=== PATIENT | male | born 1955 | race Caucasian/White ===

== ENCOUNTER 2017-07-30 23:58 | Inpatient (IN) | payer MEDICAID, OTHER ==
--- NOTE | 2017-07-31 00:09 | EDPHY ---
H & P Stated Complaint: lower abd pain xfew hours Time Seen by Provider: 07/31/17 00:05 HPI/ROS: HPI CHIEF COMPLAINT: Abdominal pain HISTORY OF PRESENT ILLNESS: This patient is a very pleasant 61-year-old male, he has stage IV colorectal cancer to his liver, he presents emergency room with abdominal pain since 0330 in the afternoon today. He has had nausea but no vomiting. No diarrhea. He states he was recently hospitalized at [facility] for blood transfusion due to anemia. He is currently undergoing treatment for his cancer and getting chemotherapy. He has a port in his chest. Decided come the emergency room as he has been taking oxycodone for his abdominal pain in his abdominal pain has gotten worse. He complains of rather diffuse pain but focally tender in the lower abdomen. He has nausea but no vomiting. Denies fever. Complains of 8/10 lower abdominal pain. He states this started after him taking a probiotic. Patient was recently hospitalized [facility] over the weekend for neutropenic fever and anemia, did receive 2 units of PRBCs. Past Medical History: Colorectal and liver cancer stage IV, currently undergoing treatment, neutropenic fever, anemia, diarrhea Past Surgical History: Chest port. Social History: Denies drugs alcohol tobacco. Family History: Noncontributory Dr. Landaverde is his Oncologist. ROS REVIEW OF SYSTEMS: A comprehensive 10 point review of systems is otherwise negative aside from elements mentioned in the history of present illness. Exam Constitutional frail, thin appearing, september triage nursing summary reviewed, vital signs reviewed, awake/alert. Eyes normal conjunctivae and sclera, EOMI, PERRLA. HENT normal inspection, atraumatic, moist mucus membranes, no epistaxis, neck supple/ no meningismus, no raccoon eyes. Respiratory clear to auscultation bilaterally, normal breath sounds, no respiratory distress, no wheezing. Cardiovascular rate normal, regular rhythm, no murmur, no edema, distal pulses normal. Gastrointestinal distended abdomen, significant tenderness to the lower abdomen. No peritoneal signs. Genitourinary no CVA tenderness. Musculoskeletal no midline vertebral tenderness, full range of motion, no calf swelling, no tenderness of extremities, no meningismus, good pulses, neurovascularly intact. Skin pink, warm, & dry, no rash, skin atraumatic. Neurologic awake, alert and oriented x 3, AAOx3, moves all 4 extremities equally, motor intact, sensory intact, CN II-XII intact, normal cerebellar, normal vision, normal speech. Psychiatric normal mood/affect. Heme/Lymph/Immune no lymphadenopathy. Differential diagnosis includes but is not limited to and in no particular order : Ischemic bowel, Bowel obstruction, appendicitis, gallbladder disease, diverticulitis, colitis, enteritis, perforated viscus, gastritis, GERD, esophagitis, urinary tract infection, pyelonephritis, kidney stones Medical Decision Making: Plan for this patient IV establishment IV fluid bolus , IV morphine 6 mg for pain control, IV Zofran nausea, CT scan abdomen pelvis with IV contrast rule out significant acute intra-abdominal pathology, KUB, check lactic acid, check basic blood work and re-evaluate. Re-evaluation: 0206: CT scan abdomen pelvis with IV contrast called to me by Dr. Garber. This shows intra-abdominal free air specifically above the liver edge. Additionally large colorectal tumor with some air pockets in it. Question if this is the air perforation. Metastatic disease noted to the liver. Bilateral hydroureter. 0207: Given the free air I did consult surgery Dr. Phillips she will come and see and evaluate the patient. I have ordered the patient IV Invanz. I did re-evaluate him he is resting comfortably at this time after IV pain medicine. Vital signs stable this time. Heart rate 92. Blood pressure 120/73. 93% on room air. Additionally I will place a consult to his oncologist. Spoke with Dr. Landaverde: Oncology. Reviewed the Case. 0258AM: Patient seen evaluated by Dr. Phillips. Long discussion with the patient at the bedside. At this time the patient does not want to go to the operating room wants to be observed with pain control and IV antibiotics. Will admit to [address] [place] [address], Oncology[address] Dr. Phillips to admit. Source: Patient - Personal History Current Tetanus/Diphtheria Vaccine: Unsure - Medical/Surgical History Hx Asthma: No Hx Chronic Respiratory Disease: No Hx Diabetes: No Hx Cardiac Disease: No Hx Renal Disease: No Hx Cirrhosis: No Hx Alcoholism: No Hx HIV/AIDS: No Hx Splenectomy or Spleen Trauma: No Other PMH: stage 4 liver and colon CA - Social History Smoking Status: Never smoked Constitutional: Initial Vital Signs Temperature (C) 35.8 C L 07/31/17 00:00 Heart Rate 85 07/31/17 00:00 Respiratory Rate 18 07/18 00:00 Blood Pressure 107/76 07/31/17 00:00 O2 Sat (%) 99 07/31/17 00:00 O2 Delivery Mode Room Air Allergies/Adverse Reactions: No Known Allergies Allergy (Verified 07/31/17 00:03) Home Medications: Medication Instructions Recorded Acetaminophen [Tylenol ES 500 mg 500 - 1,000 mg PO Q6 PRN 07/31/17 (*)] Gabapentin [Neurontin 300 MG (*)] 300 mg PO TID 07/31/17 LORazepam [Ativan (*)] 1 mg PO Q6HRS PRN 07/31/17 Multivitamins [Multivitamin (*)] 1 each PO DAILY 07/31/17 Omeprazole 40 mg PO DAILY 07/31/17 Prochlorperazine Maleate 10 mg PO Q6HRS PRN 07/31/17 [Compazine 10mg (*)] Sulfamethox/Tmp 800/160 mg 1 tab PO BID 07/31/17 [Bactrim Ds] oxyCODONE IR [Oxycodone Ir (*)] 5 mg PO Q4-6PRN PRN 07/31/17 Medical Decision Making - Diagnostics Imaging Results: Imaging Impressions Abdomen CT 07/31/17 00:16 Impression: 1. Pneumoperitoneum suspicious for perforated abdominal viscus. 2. Extensive hepatic metastatic disease. 3. Large irregular enhancing mass within the deep pelvis, with central air bubbles suggesting communication with bowel lumen. 4. Moderate bilateral hydronephrosis. 5. Abdominal and pelvic ascites, mild. The study was performed as an emergency on-call case and discussed by telephone with Dr. Vijay Obrien at 2:00 a.m. The final interpretation is concordant with the original communication. - Data Points Laboratory Results: Laboratory Results 07/31/17 00:31 07/31/17 00:31 Medications Given: Meropenem 1 gm/ Sterile Water 20 mls @ 240 mls/hr IV Q8HRS TATE PRN Reason: Protocol Stop: 08/30/17 08:59 Last Admin: 07/31/17 21:42 Dose: 20 mls Morphine Sulfate (Morphine Shellfish Checker) 0 mg IV PRN PRN; Protocol PRN Reason: Pain, Severe Unable to Take PO Stop: 08/10/17 02:57 Last Admin: 07/31/17 18:15 Dose: 30 mg Discontinued Medications Ertapenem (Invanz) 1 gm IV EDNOW ONE PRN Reason: Protocol Stop: 07/31/17 01:57 Last Admin: 07/31/17 02:07 Dose: 1 gm Hydromorphone HCl (Dilaudid) 1 mg IVP EDNOW ONE Stop: 07/31/17 00:17 Last Admin: 07/31/17 00:44 Dose: 1 mg Hydromorphone HCl (Dilaudid) 1 mg IVP EDNOW ONE Stop: 07/31/17 01:17 Last Admin: 07/31/17 01:18 Dose: 1 mg Hydromorphone HCl (Dilaudid) 1 mg IVP EDNOW ONE Stop: 07/31/17 03:15 Last Admin: 07/31/17 03:21 Dose: 1 mg Sodium Chloride (Ns) 1,000 mls @ 0 mls/hr IV EDNOW ONE; Wide Open PRN Reason: Protocol Stop: 07/31/17 00:17 Last Admin: 07/31/17 02:06 Dose: 1,000 mls Sodium Chloride (Ns) 1,000 mls @ 0 mls/hr IV ONCE ONE PRN Reason: Wide Open Stop: 07/31/17 01:57 Last Admin: 07/31/17 02:08 Dose: Not Given Morphine Sulfate (Morphine) 6 mg IVP EDNOW ONE Stop: 07/31/17 00:36 Last Admin: 07/31/17 00:46 Dose: Not Given Ondansetron HCl (Zofran) 4 mg IVP EDNOW ONE Stop: 07/31/17 00:17 Last Admin: 07/31/17 00:43 Dose: 4 mg Departure - Departure Disposition: [facility] Inpatient Acute Clinical Impression: Intra-abdominal free air of unknown etiology, Colorectal cancer Condition: Critical
[2017-07-31] MEDS ORDERED: HYDROmorphONE/DILAUDID 1 MG/ML INJ IVP ONE (00:16)
[2017-07-31] MEDS ORDERED: ONDANSETRON 4 MG/2 ML VIAL IVP ONE (00:16)
[2017-07-31] MEDS ORDERED: HYDROmorphONE/DILAUDID 2 MG/ML INJ ONE (00:42)
[2017-07-31] MEDS: NS 1,000 ML IV ONE ×2 (00:45→02:06)
[2017-07-31 00:52] LABS: PLATELET COUNT 259 10^3/uL (150-400)
[2017-07-31 00:57] LABS: INR 1.16 (0.83-1.16)
[2017-07-31] MEDS ORDERED: IOPAMIDOL (ISOVUE-300) 100 ML BTL ONE (01:06)
[2017-07-31] MEDS ORDERED: HYDROmorphONE/DILAUDID 2 MG/ML INJ IVP ONE ×2 (01:16→03:14)
[2017-07-31] MEDS ORDERED: NS 1,000 ML IV ONE (01:56)
[2017-07-31] MEDS ORDERED: ERTAPENEM 1 GM VIAL IV ONE (01:56)
[2017-07-31] MEDS ORDERED: ONDANSETRON 4 MG/2 ML VIAL IVP PRN (02:58)
[2017-07-31] MEDS ORDERED: NALOXONE HCL 0.4 MG/ML INJ IVP PRN (02:58)
[2017-07-31] MEDS ORDERED: PROMETHAZINE HCL 25 MG/ML INJ IVP PRN (02:58)
[2017-07-31] MEDS ORDERED: LORazepam 2 MG/ML INJ IVP PRN (02:58)
--- NOTE | 2017-07-31 03:56 | GHP ---
[f rep st] HISTORY AND PHYSICAL DATE OF ADMISSION: 07/31/2017 CHIEF COMPLAINT: Lower abdominal pain. HISTORY OF PRESENT ILLNESS: The patient is a 61-year-old man with known colorectal cancer with metastatic disease to his liver and known colovesical fistula. He was recently discharged from [facility] today with neutropenic fever. He received a blood transfusion. His initial chemotherapy consisted of FOLFOX and Avastin, but he has not received Avastin in a very long time due to the fistula. He has then been transitioned to FOLFIRI. He took probiotics this afternoon, and then had abrupt onset of abdominal pain that did not resolve. PAST MEDICAL HISTORY: Stage IV colorectal cancer. PAST SURGICAL HISTORY: [employer]. SOCIAL HISTORY: Denies tobacco, alcohol, or drug use. 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 FAMILY HISTORY: Noncontributory to free air. REVIEW OF SYSTEMS: Difficult to obtain because the patient is very ill. He does complain of abdominal pain. He discusses that he did not have that pain earlier. PHYSICAL EXAMINATION: VITAL SIGNS: 35.8, 92, 120/72, 16, 93%. GENERAL: Pleasant, lying in bed. He is well nourished. HEENT: Normocephalic. No gross hearing deficits. Mucous membranes dry. Eyes closed throughout most of the exam, but no obvious scleral icterus. LUNGS: Clear to auscultation bilaterally. Breathing shallow. CARDIAC: Regular rate. No peripheral edema. ABDOMEN: His abdomen is firm. There are no surgical incisions. Bowel sounds are hypoactive. He is tender to percussion, the right side is worse than the left. SKIN: Warm and dry. PSYCH: Flat affect. NEURO: Grossly intact. RESULTS REVIEWED: I personally reviewed the results of his CT scan. See free air by the liver. There are also some small dots in the pelvis. He has a large mass in the pelvis that certainly shows colon invading into bladder. His white blood cell count is 13.17, hemoglobin and hematocrit 10.5 and 31, and platelets 259. His INR is 1.6. His lactate is 1.2. His chemistry panel is essentially within normal limits. IMPRESSION AND PLAN: The patient is a 61-year-old man with stage IV colorectal cancer, who now has free air. I do not think that he can be transferred to another hospital at this time just due to his pain. We discussed going to the operating room, exploring, and possibly bring up a diverting ostomy. I am concerned that the perforation is within the pelvis, and this would be a formidable surgery as it would also involve removing the bladder in addition to having liver mets. We discussed if we went to the operating room and no obvious area of proximal free air was found I would likely wash him out, possibly give him an ostomy, and possibly leave his abdomen open. We also discussed the alternatives of doing nothing, and that could mean becoming very septic as there is obvious bacteria leaking out. We would cover him with broad- spectrum antibiotics as he could have a small chance of improving. He understands that the perforation could lead to his demise with or without surgery. He understands that with surgery we could attempt to find the perforation and correct the situation. At this time, he does not want to proceed with surgery. We will discuss again in the morning. He would like to be a DNR. /[id number]/MODL MTDD
[2017-07-31] MEDS: morphINE PCA 30 MG/30 ML PCA IV PRN ×2 (04:10→18:15)
[2017-07-31 07:54] LABS: PLATELET COUNT 254 10^3/uL (150-400)
[2017-07-31] MEDS: MEROPENEM 1 GM in STERILE WATER INJ 20 ML IV SCH ×3 (08:26→21:42)
[2017-07-31] MEDS ORDERED: MEROPENEM 1 GM in STERILE WATER INJ 20 ML IV SCH (09:00)
--- NOTE | 2017-07-31 11:30 | ASMTCMCOM ---
CM Note CM Note Notes: Pt admitted w/abdominal pain, has known colorectal cancer per H&P. He was dc'd from [facility] yesterday and then admitted here. Pt has been seen by Dr Phillips, plan not clear yet. Pt's Mother at bedside. CM will follow. Date Signed: 07/31/2017 11:29 AM Electronically Signed By:Rachel Case RN
--- NOTE | 2017-07-31 14:03 | GHP ---
[f rep st] HISTORY AND PHYSICAL DATE OF ADMISSION: 07/31/2017 REASON FOR CONSULTATION: 1. Metastatic colorectal carcinoma. 2. Colonic perforation. HISTORY OF PRESENT ILLNESS: Carmine is a 61-year-old gentleman who was diagnosed with a metastatic col orectal cancer in July of 2016. He presented with a large pelvic mass and evidence of pelvic wall i nvasion and a colovesicular fistula. Further staging studies revealed diffuse liver metastasis. His primary pelvic mass was unresectable at presentation. He was treated initially with FOLFOX chemotherapy which was completed in January of 2017. He had a good initial partial response. He was transitioned to maintenance capecitabine and was given 1 IR d irected Y-90 TheraSphere treatment in late April 2017. The patient recently developed progressive disease in the pelvis and was transitioned to FOLFIRI. He has had 2 cycles of treatment. His most recent treatment was given on July 17, 2017. He was recently admitted to [facility] with neutropenic fever and pancytopenia secondar y to chemotherapy. His pancytopenia improved. There was no clear source of infection. He was given packed red cell transfusion. He was discharged from the hospital yesterday. Carmine, unfortunately, developed acute onset abdominal pain several hours after leaving [facility] and presented by ambulance to [facility] early this morning. A CT of the abdomen done in the ER revealed pneumoperitoneum suspicious for a perforated abdominal viscus. He zelaya s a persistent large irregularly enhancing mass within the deep pelvis with central air bubbles sugge sting the potential source of the perforation. Extensive hepatic metastatic disease was noted as was abdominal ascites. The patient was evaluated by Dr. Phillips of General Surgery. The option of a palliative diverting colo stomy was discussed with the patient. When seen today, the patient is accompanied by his mother. He has given things a great deal of thoug ht and states that he does not want to pursue surgery and that he does not want any further therapy f or his metastatic colorectal cancer. He would like to be allowed to naturally. His mother is mariee pportive of his decision. His pain is better on a morphine SENIOR GL ACCOUNTANT. PAST MEDICAL HISTORY: Recent diagnosis of metastatic colorectal cancer as outlined above. Otherwise essentially unremarkable prior to his diagnosis. PAST SURGICAL HISTORY: Lipoma removal. FAMILY MEDICAL HISTORY: Notable for maternal first cousin dying of liver cancer in her late 40s. He denies any known family history of colorectal cancer. He has one brother who is healthy. SOCIAL HISTORY: Carmine is single. He lives in [place], [place]. He has no children. 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 He is a nonsmoker. He does use recreational marijuana occasionally. He drinks alcohol occasionally. His mother, Elana, lives locally. REVIEW OF SYSTEMS: As outlined above. Carmine currently denies nausea, vomiting. He denies fevers or chills. PHYSICAL EXAM: GENERAL: Carmine is in mild distress. He is lying in bed. HEENT: There is no sclera l icterus. Pupils are equal. HEART: Tachycardic without murmur. LUNGS: Clear bilaterally. BACK: No flank tenderness. ABDOMEN: Firm. There is rebound tenderness with minimal guarding, right oliva e greater than left. Minimal abdominal distention. Hypoactive bowel sounds present. EXTREMITIES: No extremity swelling or edema. NEUROLOGICAL: Patient is alert, oriented, and appropriate. DIAGNOSTICS: CT results as outlined above. LABORATORY DATA: Sodium 134, potassium 4.2, chloride 104, bicarb 21, BUN 13, creatinine 0.8. White count 14.3, hemoglobin 9.6, hematocrit 29.4, platelet count is 254,000. IMPRESSION: 1. Metastatic colorectal cancer. 2. Colonic perforation secondary to #1. 3. Diffuse hepatic metastasis secondary to #1. MEDICAL DECISION MAKING: Carmine is a pleasant 61-year-old gentleman who was diagnosed 1 year ago with widely metastatic colorectal cancer. He responded initially to palliative chemotherapy, but daria hooker has now developed a colonic perforation. I had a fairly lengthy discussion with Carmine and his mother, Elana, regarding his options. I have reviewed his case with Dr. Phillips of General Surgery and also personally reviewed his CT scan. Carmine , unfortunately, has very limited options at this point. I again discussed the option of a palliativ e diverting colostomy with attempt at sterile irrigation of his abdomen and IV antibiotic therapy. Leila jordan states, at this point, he does not want to pursue any further aggressive treatment for his cance r and specifically does not want surgery. He understands that without surgery, his life expectancy m ay only be a few days to weeks. He is accepting of this and wishes to naturally. We discussed involving home hospice. He is agreeable to this and we have consulted [facility] re hospice. I think Carmine would be a potentially good candidate for the [facility]. He will continue on a morphine SENIOR GL ACCOUNTANT. I updated Dr. Phillips with Carmine's decision. Carmine's mother, Elana, is very supportive of his decision. Carmine and his mother had multiple questions regarding end of life issues which were answered. Per discussion with Carmine today, no further treatment is planned. We will transition to home hospice . Total time for today's visit including review of his films, discussion with General Surgery was appro ximately 65 minutes, of which greater than 50% was spent in counseling and care coordination. /[id number]/MODL
--- NOTE | 2017-07-31 15:07 | SOAPPROG ---
SOAP Progress Note Assessment/Plan: Assessment: 61 yo with metastatic colon cancer and now free air. Discussed surgery vs antibiotics vs do nothing Carmine does not want surgery I reviewed the films again and it appears both the sigmoid colon and terminal ileum are entering the pelvic mass Continue FAST FOOD SUPERVISOR, ativan, antiemetics. Discussed case with Dr. Landaverde who will call hospice S: Feeling about the same o: Lying in bed, mom at bedside Abdomen firm and tenderness is about the same Plan: 07/31/17 15:05 Objective: Vital Signs Temp Pulse Resp BP Pulse Ox 36.9 C 93 15 121/71 H 92 07/31/17 13:57 07/31/17 13:57 07/31/17 13:57 07/31/17 13:57 07/31/17 13:57 Laboratory Results 07/31/17 07:30 07/31/17 07:30 07/30/17 07/31/17 08/01/17 05:59 05:59 05:59 Intake Total 1000 Balance 1000 PT 15.0 SEC (12.0-15.0) 07/31/17 00:31 INR 1.16 (0.83-1.16) 07/31/17 00:31 ICD10 Worksheet Patient Problems: Problems Problem Status Onset Colorectal cancer Acute Intra-abdominal free air of unknown etiology Acute
--- NOTE | 2017-07-31 17:15 | ASMTCMCOM ---
CM Note CM Note Notes: Spoke w/pt's oncologist, Dr Landaverde, who said pt is interested in Hospice and would like to meet w/[facility]. I met w/pt and supportive Mom to discuss and they confirmed they would like to meet w/[facility]. Referral sent to [facility] and FENG Valverde was able to come out today to meet w/pt and mother. They would like to move forward w/Hospice and are going to take tonight to discuss and decide if they would like to go to Center or home w/Hospice. He is currently requiring DIE MAINTENANCE pain control. Discussed w/Nicolle from [facility], pt, mom, and floor RN. Nicolle from [facility] said he would need to do ALS transport most likely b/c need for IV pain med likely during transport. CM will call [facility] in AM to confirm Care Center or Home. Date Signed: 07/31/2017 05:14 PM Electronically Signed By:Rachel Case RN
--- NOTE | 2017-07-31 18:12 | PDMN ---
Medical Necessity Medical necessity: Pt meets IP criteria per MD; est los >2 mn for eval/tx of lower abdominal pain r/t perforation & free air; pt is very ill; admit for further monitoring, IV pain meds, IV abx, Oncology consult & discussion regarding tx goals; hx metastatic colorectal cancer; per H&P & order 07/31/17
[2017-07-31] MEDS ORDERED: LORazepam 1 MG TAB PO PRN (22:29)
[2017-08-01] MEDS: MEROPENEM 1 GM in STERILE WATER INJ 20 ML IV SCH (05:43)
[2017-08-01 06:14] VITALS: PULSE 100
[2017-08-01 08:05] VITALS: RESP 16
[2017-08-01 10:15] VITALS: BP 104/66; TEMP 99.1; O2SAT 93
--- NOTE | 2017-08-01 10:39 | PDIAF ---
- Diagnosis Diagnosis: metastatic colon cancer and bowel perforation Code Status: Do Not Resuscitate - Medication Management Discharge Medications: Medications to Continue on Transfer Acetaminophen [Tylenol ES 500 mg (*)] 500 - 1,000 mg PO Q6 PRN 07/31/17 [Last Taken Unknown] Gabapentin [Neurontin 300 MG (*)] 300 mg PO TID 07/31/17 [Last Taken 07/30/17 14 :00] Omeprazole 40 mg PO DAILY 07/31/17 [Last Taken 07/30/17] Prochlorperazine Maleate [Compazine 10mg (*)] 10 mg PO Q6HRS PRN 07/31/17 [Last Taken 07/29/17] oxyCODONE IR [Oxycodone Ir (*)] 5 mg PO Q4-6PRN PRN 07/31/17 [Last Taken 21:00 3 tabs] LORazepam [Ativan (*)] 1 mg PO Q4HRS PRN tab 08/01/17 [Last Taken Unknown] LORazepam [Ativan inj 2 mg/ml (*)] 1 mg IVP Q4H PRN inj 08/01/17 [Last Taken Unknown] Ondansetron HCl Pf [Zofran 4 mg Inj (*)] 4 mg IVP Q4HRS PRN vial 08/01/17 [ Last Taken Unknown] diphenhydrAMINE [Benadryl Injection] 25 - 50 mg IVP Q6HRS PRN inj 08/01/17 [ Last Taken Unknown] Additional Medication Instructions: Pain control per Hospice. Discharge Medications: Refer to the Discharge Home Medication list for PRN reason. - Orders Diet Recommendation: no restrictions on diet Activity/Weight Bearing Restrictions: No restrictions - Follow Up Care Current Providers and Referrals: Mary Landaverde MD [Medical Doctor] - (as needed) Kiara Beyer MD [Primary Care Provider] - As per Instructions
--- NOTE | 2017-08-01 10:54 | ASMTCMCOM ---
CM Note CM Note Notes: Pt to DC to [facility] today. Hdara from [facility] will be out at 11:30 for paperwork. [facility] ALS transport arranged through [facility] for noon. FENG Nielsen will give report to [facility] and determine what they want to do about the TRAVEL SPECIALIST and port. Date Signed: 08/01/2017 10:53 AM Electronically Signed By:Brittney Marshall LCSW
[2017-08-01] MEDS ORDERED: ALTEPLASE 2 MG VIAL IVP PRN (11:21)
--- NOTE | 2017-08-01 12:58 | SOAPPROG ---
SOAP Progress Note Assessment/Plan: Assessment: 61 yo with metastatic colon cancer and now free air. Ese Lou is going to pursue hospice He had no additional questions today Will discharge to hospice S: Feeling about the same o: Lying in bed, Abdomen firm and tenderness is about the same Plan: 07/31/17 15:05 08/01/17 12:56 Objective: Vital Signs Temp Pulse Resp BP Pulse Ox 37.3 C 100 16 104/66 93 08/01/17 10:15 08/01/17 10:15 08/01/17 10:15 08/01/17 10:15 08/01/17 10:15 Laboratory Results 07/31/17 07:30 07/31/17 07:30 07/31/17 08/01/17 08/02/17 05:59 05:59 05:59 Intake Total 1000 420 Output Total 182 Balance 1000 238 PT 15.0 SEC (12.0-15.0) 07/31/17 00:31 INR 1.16 (0.83-1.16) 07/31/17 00:31 ICD10 Worksheet Patient Problems: Problems Problem Status Onset Colorectal cancer Acute Intra-abdominal free air of unknown etiology Acute
== END 2017-08-01 15:11 | disposition hospice, home (50) | DRG 394 ==
LOC: F1N 07-31 03:49
PROVIDERS: ADMIT Surgery; ATTEND Surgery
DX: K63.1 Perforation of intestine (nontraumatic) (principal); C19 Malignant neoplasm of rectosigmoid junction; C78.7 Secondary malignant neoplasm of liver and intrahepatic bile duct; Z51.5 Encounter for palliative care
CPT/HCPCS: 96374; J1170; J1335; J1642; J2060; J2185; J2270; J2405; J2997; Q9967